=== PATIENT | male | born 1950 | race Caucasian/White ===

== ENCOUNTER → 2016-07-07 | Outpatient (REF) | payer MEDICARE ==
[2016-07-07 11:30] LABS: MEAN CORPUSCULAR HEMOGLOBIN 30.8 pg (27.0-33.0); MEAN CORPUSCULAR HGB CONC 32.4 g/dl (32.0-36.5); MEAN CORPUSCULAR VOLUME 95.2 fl (80.0-96.0); RED CELL DISTRIBUTION WIDTH 13.2 % (11.5-14.5); WHITE BLOOD COUNT 5.6 K/mm3 (4.0-10.0)
[2016-07-07 11:52] LABS: ALBUMIN 3.7 GM/DL (3.2-5.2); ALBUMIN/GLOBULIN RATIO 1.12 (1.00-1.93); ALKALINE PHOSPHATASE 90 U/L (45-117); ALT/SGPT 43 U/L (12-78); ANION GAP 6 MEQ/L (8-16); AST/SGOT 15 U/L (15-37); BILIRUBIN,TOTAL 0.6 MG/DL (0.2-1.0); BLOOD UREA NITROGEN 17 MG/DL (7-18); CALCIUM LEVEL 8.6 MG/DL (8.8-10.2); CARBON DIOXIDE LEVEL 29 MEQ/L (21-32); CHLORIDE LEVEL 107 MEQ/L (98-107); CHOLESTEROL LEVEL 175 MG/DL (<200); CREATININE FOR GFR 0.88 MG/DL (0.70-1.30); GLOMERULAR FILTRATION RATE > 60.0 (>49); GLUCOSE, FASTING 104 MG/DL (80-110); POTASSIUM SERUM 4.7 MEQ/L (3.5-5.1); SODIUM LEVEL 142 MEQ/L (136-145); TRIGLYCERIDES LEVEL 173 MG/DL (<150)
[2016-07-15 00:07] LABS: Size 6x4x2 mm (.); Uric Acid 93 % (.)
== END ==
LOC: M SFHCCLAY 07:36
PROVIDERS: ATTEND Family Medicine
DX: Z00.00 Encounter for general adult medical examination without abnormal findings (principal); N20.0 Calculus of kidney; E78.00 Pure hypercholesterolemia, unspecified; Z86.718 Personal history of other venous thrombosis and embolism
CPT/HCPCS: 80053; 80061; 82306; 82360; 84443; 85027; 90471; 90670; G0009

== ENCOUNTER → 2017-01-25 | Outpatient (REF) | payer MEDICARE ==
[~2017-01-25] MED LIST: ALLO100T PO; ATOR1TAB19 PO; COUM1TAB17 PO; HYDR12.55 PO
[2017-02-08 14:20] LABS: Size 4x3x3 mm (.); Uric Acid 40 % (.)
== END ==
LOC: M SFHCCLAY 11:59
PROVIDERS: ATTEND Family Medicine
DX: N20.0 Calculus of kidney (principal)

== ENCOUNTER → 2017-03-21 | Outpatient (REF) | payer MEDICARE ==
[2017-03-21 11:42] LABS: ALBUMIN 4.1 GM/DL (3.2-5.2); ALBUMIN/GLOBULIN RATIO 1.28 (1.00-1.93); ALKALINE PHOSPHATASE 70 U/L (45-117); ALT/SGPT 40 U/L (12-78); ANION GAP 7 MEQ/L (8-16); AST/SGOT 21 U/L (7-37); BILIRUBIN,TOTAL 0.9 MG/DL (0.2-1.0); BLOOD UREA NITROGEN 17 MG/DL (7-18); CALCIUM LEVEL 8.6 MG/DL (8.8-10.2); CARBON DIOXIDE LEVEL 29 MEQ/L (21-32); CHLORIDE LEVEL 106 MEQ/L (98-107); CHOLESTEROL LEVEL 214 MG/DL (<200); CHOLESTEROL RISK RATIO 5.944 (<5); CREATININE FOR GFR 0.91 MG/DL (0.70-1.30); GLOMERULAR FILTRATION RATE > 60.0 (>49); GLUCOSE, FASTING 106 MG/DL (80-110); HDL CHOLESTEROL 36 MG/DL (>40); LDL CHOLESTEROL 132.6 MG/DL (<100); NON-HDL-C 178 MG/DL; POTASSIUM SERUM 4.8 MEQ/L (3.5-5.1); SODIUM LEVEL 142 MEQ/L (136-145); TOTAL PROTEIN 7.3 GM/DL (6.4-8.2); TRIGLYCERIDES LEVEL 227 MG/DL (<150)
== END ==
LOC: M SFHCCLAY 08:26
DX: I10 Essential (primary) hypertension (principal); E78.00 Pure hypercholesterolemia, unspecified
CPT/HCPCS: 84443

== ENCOUNTER → 2018-01-23 | Outpatient (REF) | payer MEDICARE ==
[2018-02-01 00:08] LABS: Ca Ox Monohydrate 40 % (.); Uric Acid 50 % (.)
== END ==
LOC: M SFHCCLAY 08:01
DX: N20.0 Calculus of kidney (principal); Z23 Encounter for immunization
CPT/HCPCS: 82360

== ENCOUNTER → 2018-08-01 | Outpatient (REF) | payer MEDICARE ==
[2018-08-01 12:57] LABS: ALBUMIN 3.8 GM/DL (3.2-5.2); ALT/SGPT 47 U/L (12-78); BILIRUBIN,TOTAL 0.8 MG/DL (0.2-1.0); BLOOD UREA NITROGEN 13 MG/DL (7-18); CALCIUM LEVEL 8.7 MG/DL (8.8-10.2); CARBON DIOXIDE LEVEL 27 MEQ/L (21-32); CHLORIDE LEVEL 106 MEQ/L (98-107); CHOLESTEROL LEVEL 256 MG/DL (<200); CHOLESTEROL RISK RATIO 6.918 (<5); CREATININE FOR GFR 0.96 MG/DL (0.70-1.30); GLOMERULAR FILTRATION RATE > 60.0 (>42); GLUCOSE, FASTING 106 MG/DL (70-100); HDL CHOLESTEROL 37 MG/DL (>40); LDL CHOLESTEROL 174 MG/DL (<100); NON-HDL-C 219 MG/DL; SODIUM LEVEL 141 MEQ/L (136-145); TOTAL PROTEIN 7.5 GM/DL (6.4-8.2); TRIGLYCERIDES LEVEL 227 MG/DL (<150); URIC ACID 4.1 MG/DL (3.5-7.2)
== END ==
LOC: M SFHCCLAY 08:19
PROVIDERS: ATTEND Family Medicine
DX: I10 Essential (primary) hypertension (principal); E79.0 Hyperuricemia without signs of inflammatory arthritis and tophaceous disease; E78.00 Pure hypercholesterolemia, unspecified
CPT/HCPCS: 80053; 80061; 84550; G0463

== ENCOUNTER 2019-04-09 09:16 | Day surgery (SDC) | payer MEDICARE ==
[~2019-04-09] VITALS: Ht 175.3 cm; Wt 92.1 kg
[~2019-04-09 09:16] MED LIST changes: +CBD OIL PO; +LOSA25TA14 PO; +NS 1,000 ML IV ONE; +WARF-21 PO
[2019-04-09] MEDS ORDERED: propofoL 200 MG/20 ML VIAL As Ordered ONE (09:22)
--- NOTE | 2019-04-09 11:00 | ROOR ---
Patient Name: Chino Alejandre Procedure Date: 04/09/2019 10:36 AM Date of : 1950 Age: 68 Room: [facility] Gender: Male Note Status: Finalized Procedure: Upper Endoscopy + Biopsies + Balloon Dilatation Indications: Dysphagia, Heartburn Providers: Eber Willis MD Referring MD: Raymond Tucker MD Requesting Provider: Medicines: Monitored Anesthesia Care Complications: No immediate complications. Procedure: Pre-Anesthesia Assessment: - The heart rate, respiratory rate, oxygen saturations, blood pressure, adequacy of pulmonary ventilation, and response to care were monitored throughout the procedure. The Endoscope was introduced through the mouth, and advanced to the second part of duodenum. The upper GI endoscopy was accomplished without difficulty. The patient tolerated the procedure well. Findings: The Z-line was irregular and was found 40 cm from the incisors. Multiple biopsies were obtained with cold forceps for evaluation to rule out Kevin's Esophagus randomly at the gastroesophageal junction. A TTS dilator was passed through the scope. Dilation with an 18-19-20 mm balloon dilator was performed to 18 mm in the entire esophagus. A small hiatal hernia was present. Localized mild inflammation characterized by congestion (edema) and erythema was found in the gastric antrum. Biopsies were taken with a cold forceps for Helicobacter pylori testing. The exam of the duodenum was otherwise normal. Impression: - Z-line irregular, 40 cm from the incisors. - Small hiatal hernia. - Mucosal changes suspicious for gastritis. Biopsied. - Multiple biopsies were obtained at the gastroesophageal junction. - Dilation performed in the entire esophagus. - The examination was otherwise normal. Recommendation: - Patient has a contact number available for emergencies. The signs and symptoms of potential delayed complications were discussed with the patient. Return to normal activities tomorrow. Written discharge instructions were provided to the patient. - Resume previous diet. - Discharge patient to home. - Continue present medications. - Await pathology results. - Telephone GI clinic for pathology results in 1 week. - Return to referring physician. - The findings and recommendations were discussed with the patient's family. Eber Willis MD Eber Willis MD 04/09/2019 11:00:33 AM Electronically signed by Eber Willis MD Number of Addenda: 0 Note Initiated On: 04/09/2019 10:36 AM Estimated Blood Loss: Estimated blood loss: none.
[2019-04-09 11:23] VITALS: BP 158/90
== END 2019-04-09 11:45 | disposition home or self-care (01) ==
LOC: M OPP 09:16
PROVIDERS: ATTEND Internal Medicine Gastroenterology
DX: K22.8 Other specified diseases of esophagus (principal); K44.9 Diaphragmatic hernia without obstruction or gangrene; K31.89 Other diseases of stomach and duodenum; R13.10 Dysphagia, unspecified; R12 Heartburn; Z79.01 Long term (current) use of anticoagulants; Z79.899 Other long term (current) drug therapy; Z88.5 Allergy status to narcotic agent

== ENCOUNTER → 2019-09-12 | Outpatient (CLI) | payer MEDICARE ==
[~2019-09-12] MED LIST changes: -NS 1,000 ML IV ONE
--- NOTE | 2019-09-12 23:36 | REP ---
CERVICAL SPINE SERIES: Full cervical spine series performed. There is no compression fracture or malalignment. There is normal cervical lordosis. There is no prevertebral soft tissue swelling. There is mild to moderate anterior and posterior spurring at C4 through C7. There is mild disc space narrowing and subchondral sclerosis at C4-5 and C6-7 with moderate narrowing at C5-6. There is diffuse sclerosis and spurring at the posterior facet joints. Uncovertebral spurring and facet spurring may cause some degree of neural foraminal narrowing at C4-5 and C5-6 bilaterally. IMPRESSION: Degenerative changes as above, with no fracture or dislocation. Electronically Signed by Song Graff MD 09/13/2019 01:17 P
== END ==
LOC: M CLY 15:56
PROVIDERS: ATTEND Family Medicine
DX: M54.12 Radiculopathy, cervical region (principal)
CPT/HCPCS: 72050; G0463

== ENCOUNTER → 2020-01-28 | Outpatient (REF) | payer MEDICARE | LOC: M LAB REF 18:50 | PROVIDERS: ATTEND Dermatology | DX: L57.0 Actinic keratosis (principal) ==

== ENCOUNTER → 2021-02-17 | Outpatient (CLI) | payer MEDICARE ==
[~2021-02-17] MED LIST changes: +ALLO300T2 PO; +ATOR40TA75 PO; +LOSA25TA13 PO; -LOSA25TA14 PO; +LOSA50TA28 PO; +OMEP40CA5 PO; +WARF-23 PO
== END ==
LOC: M LABSMTC 09:35
PROVIDERS: ATTEND Anesthesiology
DX: Z01.812 Encounter for preprocedural laboratory examination (principal); Z20.822 Contact with and (suspected) exposure to COVID-19

== ENCOUNTER 2021-02-22 09:42 | Day surgery (SDC) | payer MEDICARE ==
[~2021-02-22] VITALS: Ht 170.2 cm; Wt 90.7 kg
[~2021-02-22 09:42] MED LIST changes: +LIDOCAINE 2% 100MG/5ML SDV (FOR ANES.) As Ordered ONE; -LOSA25TA13 PO; +LOSA25TA14 PO; -LOSA50TA28 PO; +LOSA50TA88 PO; +NS 1,000 ML IV ONE; +OMEP-221 PO; -OMEP40CA5 PO; +propofoL 200 MG/20 ML VIAL As Ordered ONE
--- NOTE | 2021-02-22 11:29 | ROOR ---
Patient Name: Chino Alejandre Procedure Date: 02/22/2021 11:12 AM Date of : 1950 Age: 70 Room: [facility] Gender: Male Note Status: Finalized Procedure: Upper Endoscopy + Biopsies Indications: Heartburn, Exclusion of Kevin's esophagus Providers: Eber Willis MD Referring MD: Raymond Tucker MD Requesting Provider: Medicines: Monitored Anesthesia Care Complications: No immediate complications. Procedure: Pre-Anesthesia Assessment: - The heart rate, respiratory rate, oxygen saturations, blood pressure, adequacy of pulmonary ventilation, and response to care were monitored throughout the procedure. The Endoscope was introduced through the mouth, and advanced to the second part of duodenum. The upper GI endoscopy was accomplished without difficulty. The patient tolerated the procedure well. Findings: The Z-line was variable and was found 40 cm from the incisors. Multiple biopsies were obtained with cold forceps for evaluation to rule out Kevin's Esophagus randomly at the gastroesophageal junction. A small hiatal hernia was present. No other significant abnormalities were identified in a careful examination of the stomach. The exam of the duodenum was otherwise normal. Impression: - Z-line variable, 40 cm from the incisors. - Small hiatal hernia. - Multiple biopsies were obtained at the gastroesophageal junction. - The examination was otherwise normal. Recommendation: - Patient has a contact number available for emergencies. The signs and symptoms of potential delayed complications were discussed with the patient. Return to normal activities tomorrow. Written discharge instructions were provided to the patient. - High fiber diet. - Discharge patient to home. - Continue present medications. - Await pathology results. - Telephone GI clinic for pathology results in 1 week. - Return to referring physician. - The findings and recommendations were discussed with the patient. Procedure Code(s): --- Professional --- 77736, Esophagogastroduodenoscopy, flexible, transoral; with biopsy, single or multiple Diagnosis Code(s): --- Professional --- K22.8, Other specified diseases of esophagus K44.9, Diaphragmatic hernia without obstruction or gangrene R12, Heartburn CPT copyright 2019 [employer]. All rights reserved. The codes documented in this report are preliminary and upon granulator operator review may be revised to meet current compliance requirements. Eber Willis MD Eber Willis MD 02/22/2021 11:29:15 AM Electronically signed by Eber Willis MD Number of Addenda: 0 Note Initiated On: 02/22/2021 11:12 AM Estimated Blood Loss: Estimated blood loss: none.
[2021-02-22] MEDS ORDERED: fentaNYL 100 MCG/2 ML INJECTION (J3010) As Ordered ONE (11:35)
--- NOTE | 2021-02-22 11:50 | ROOR ---
Patient Name: Chino Alejandre Procedure Date: 02/22/2021 11:13 AM Date of : 1950 Age: 70 Room: [facility] Gender: Male Note Status: Finalized Procedure: Total Colonoscopy to Cecum + ileoscopy Indications: High risk colon cancer surveillance: Personal history of colonic polyps, Last colonoscopy: 2015 Providers: Eber Willis MD Referring MD: Raymond Tucker MD Requesting Provider: Medicines: Monitored Anesthesia Care Complications: No immediate complications. Procedure: Pre-Anesthesia Assessment: - The heart rate, respiratory rate, oxygen saturations, blood pressure, adequacy of pulmonary ventilation, and response to care were monitored throughout the procedure. The Colonoscope was introduced through the anus and advanced to the cecum, identified by appendiceal orifice and ileocecal valve. The colonoscopy was performed without difficulty. The patient tolerated the procedure well. The quality of the bowel preparation was good. Findings: The perianal and digital rectal examinations were normal. Non-bleeding internal hemorrhoids were found during retroflexion. The hemorrhoids were small and Grade I (internal hemorrhoids that do not prolapse). Multiple small and large-mouthed diverticula were found in the recto-sigmoid colon, sigmoid colon and descending colon. The exam was otherwise without abnormality on direct and retroflexion views. The terminal ileum appeared normal. Impression: - Non-bleeding internal hemorrhoids. - Diverticulosis in the recto-sigmoid colon, in the sigmoid colon and in the descending colon. - The examination was otherwise normal on direct and retroflexion views. - The examined portion of the ileum was normal. - No specimens collected. - The exam was otherwise normal to the cecum. Recommendation: - Patient has a contact number available for emergencies. The signs and symptoms of potential delayed complications were discussed with the patient. Return to normal activities tomorrow. Written discharge instructions were provided to the patient. - High fiber diet. - Discharge patient to home. - Continue present medications. - Repeat colonoscopy is not recommended for surveillance. - Return to referring physician. - The findings and recommendations were discussed with the patient. Procedure Code(s): --- Professional --- G0105, Colorectal cancer screening; colonoscopy on individual at high risk Diagnosis Code(s): --- Professional --- Z86.010, Personal history of colonic polyps K64.0, First degree hemorrhoids K57.30, Diverticulosis of large intestine without perforation or abscess without bleeding CPT copyright 2019 [employer]. All rights reserved. The codes documented in this report are preliminary and upon knock out hand review may be revised to meet current compliance requirements. Eber Willis MD Eber Willis MD 02/22/2021 11:49:43 AM Electronically signed by Eber Willis MD Number of Addenda: 0 Note Initiated On: 02/22/2021 11:13 AM Estimated Blood Loss: Estimated blood loss: none.
[2021-02-22 12:05] VITALS: BP 175/95
== END 2021-02-22 12:15 | disposition home or self-care (01) ==
LOC: M OPP 09:42
PROVIDERS: ATTEND Internal Medicine Gastroenterology
DX: Z12.11 Encounter for screening for malignant neoplasm of colon (principal); Z86.010 Personal history of colon polyps; K57.30 Diverticulosis of large intestine without perforation or abscess without bleeding; K64.0 First degree hemorrhoids; K22.89 Other specified disease of esophagus; K44.9 Diaphragmatic hernia without obstruction or gangrene; R12 Heartburn; Z86.718 Personal history of other venous thrombosis and embolism; Z79.899 Other long term (current) drug therapy; Z88.5 Allergy status to narcotic agent; Z95.828 Presence of other vascular implants and grafts; Z85.46 Personal history of malignant neoplasm of prostate
CPT/HCPCS: 43239; 88305; G0105; J3010

== ENCOUNTER → 2021-03-05 | Outpatient (REF) | payer MEDICARE ==
[~2021-03-05] MED LIST changes: -LIDOCAINE 2% 100MG/5ML SDV (FOR ANES.) As Ordered ONE; +LOSA25TA13 PO; -LOSA25TA14 PO; +LOSA50TA28 PO; -LOSA50TA88 PO; -NS 1,000 ML IV ONE; -propofoL 200 MG/20 ML VIAL As Ordered ONE
[2021-03-05 12:08] LABS: HEMATOCRIT 48.5 % (42.0-52.0); HEMOGLOBIN 15.7 g/dl (13.5-17.5); MEAN CORPUSCULAR HEMOGLOBIN 31.1 pg (27.0-33.0); MEAN CORPUSCULAR HGB CONC 32.4 g/dl (32.0-36.5); PLATELET COUNT, AUTOMATED 321 10^3/uL (150-450); RED BLOOD COUNT 5.05 10^6/uL (4.30-6.10); WHITE BLOOD COUNT 7.8 10^3/uL (4.0-10.0)
[2021-03-05 13:54] LABS: ALBUMIN 3.8 GM/DL (3.2-5.2); ALT/SGPT 41 U/L (12-78); BILIRUBIN,TOTAL 0.8 MG/DL (0.2-1.0); BLOOD UREA NITROGEN 14 MG/DL (7-18); CALCIUM LEVEL 9.1 MG/DL (8.8-10.2); CARBON DIOXIDE LEVEL 31 MEQ/L (21-32); CHLORIDE LEVEL 105 MEQ/L (98-107); CHOLESTEROL LEVEL 152 MG/DL (<200); CREATININE FOR GFR 0.92 MG/DL (0.70-1.30); GLOMERULAR FILTRATION RATE > 60.0 (>42); GLUCOSE, FASTING 99 MG/DL (70-100); HDL CHOLESTEROL 38 MG/DL (>40); LDL CHOLESTEROL 81 MG/DL (<100); NON-HDL-C 114 MG/DL; POTASSIUM SERUM 5.6 MEQ/L (3.5-5.1); SODIUM LEVEL 139 MEQ/L (136-145); TOTAL PROTEIN 7.2 GM/DL (6.4-8.2); TRIGLYCERIDES LEVEL 165 MG/DL (<150)
== END ==
LOC: M SFHCCLAY 08:47
PROVIDERS: ATTEND Family Medicine
DX: E78.00 Pure hypercholesterolemia, unspecified (principal); I10 Essential (primary) hypertension; Z86.718 Personal history of other venous thrombosis and embolism; H91.93 Unspecified hearing loss, bilateral
CPT/HCPCS: 80053; 80061; 85027; G0463

== ENCOUNTER → 2021-09-14 | Outpatient (REF) | payer MEDICARE ==
[~2021-09-14] MED LIST changes: -OMEP-221 PO; +OMEP40CA5 PO
== END ==
LOC: M SFHCCLAY 07:38
PROVIDERS: ATTEND Family Medicine
DX: E79.0 Hyperuricemia without signs of inflammatory arthritis and tophaceous disease (principal); I10 Essential (primary) hypertension; Z86.718 Personal history of other venous thrombosis and embolism

== ENCOUNTER → 2022-09-07 | Outpatient (REF) | payer MEDICARE ==
[2022-09-07 12:55] LABS: BLOOD UREA NITROGEN 17 MG/DL (9-23); CALCIUM LEVEL 9.4 MG/DL (8.3-10.6); CARBON DIOXIDE LEVEL 28 MMOL/L (20-31); CHLORIDE LEVEL 105 MMOL/L (98-107); CREATININE FOR GFR 1.02 MG/DL (0.70-1.30); GLOMERULAR FILTRATION RATE > 60.0 (>42); GLUCOSE, FASTING 90 MG/DL (74-106); POTASSIUM SERUM 4.6 MMOL/L (3.5-5.1); SODIUM LEVEL 139 MMOL/L (136-145)
== END ==
LOC: M SFHCCLAY 08:57
PROVIDERS: ATTEND Family Medicine
DX: Z00.00 Encounter for general adult medical examination without abnormal findings (principal); I10 Essential (primary) hypertension

== ENCOUNTER → 2023-03-28 | Outpatient (REF) | payer MEDICARE ==
[2023-03-28 12:31] LABS: URIC ACID 4.7 MG/DL (3.7-9.2)
[2023-03-28 12:34] LABS: BLOOD UREA NITROGEN 18 MG/DL (9-23); CALCIUM LEVEL 9.2 MG/DL (8.3-10.6); CARBON DIOXIDE LEVEL 32 MMOL/L (20-31); CHLORIDE LEVEL 104 MMOL/L (98-107); CREATININE FOR GFR 0.96 MG/DL (0.70-1.30); GLOMERULAR FILTRATION RATE > 60.0 (>42); GLUCOSE, FASTING 102 MG/DL (74-106); POTASSIUM SERUM 4.3 MMOL/L (3.5-5.1); SODIUM LEVEL 137 MMOL/L (136-145)
== END ==
LOC: M SFHCCLAY 08:00
PROVIDERS: ATTEND Family Medicine
DX: Z28.21 Immunization not carried out because of patient refusal (principal)

== ENCOUNTER → 2023-07-11 | Outpatient (REF) | payer MEDICARE | LOC: M LAB REF 18:07 | PROVIDERS: ATTEND Internal Medicine | DX: E79.0 Hyperuricemia without signs of inflammatory arthritis and tophaceous disease (principal) ==